=== PATIENT | female | born 1960 | race Caucasian/White ===

== ENCOUNTER 2020-10-12 14:12 | Emergency (ER) | payer OTHER, SELFPAY ==
[2020-10-12 14:13] VITALS: BP 148/97; PULSE 86; RESP 18; TEMP 36.3; O2SAT 97; BMI 36.3
--- NOTE | 2020-10-12 14:26 | EKG12_ITS ---
Test Reason : CP Blood Pressure : / mmHG Vent. Rate : 086 BPM Atrial Rate : 086 BPM P-R Int : 130 ms QRS Dur : 124 ms QT Int : 424 ms P-R-T Axes : 023 -48 -08 degrees QTc Int : 507 ms Normal sinus rhythm Right bundle branch block Left anterior fascicular block Bifascicular block Abnormal ECG Confirmed by ZIGGY WOMACK, LISA ([id number]), non linear editor HAYLEY SANTOS ([id number]) on 10/13/2020 1:06:27 PM Referred By: JUANY Confirmed By:LISA TRINH MD
--- NOTE | 2020-10-12 14:27 | ED.DCSUM_ITS ---
History of Present Illness Chief Complaint: Chest Pain Informant: Patient Onset: Today Timing: Intermittent, Lasts - 5 to 10 seconds Quality: Squeezing, pressure Location: Midsternal Current Severity: Mild Maximum Severity: Moderate Narrative: Patient presents secondary to chest pain. She states since 7 AM this morning, 7-1/2 hours ago, she has had intermittent squeezing pressure sensation in her mid chest. She states episodes will come on, only last 5 or 10 seconds, and then resolve. It is not necessarily related to activity. She does not feel short of breath. She has a history of PVCs but states she has never had anything that felt like this pressure. She does report having a stress test in the past but does admit it has been quite some time. - Past Medical History (1) Hypertension Status: Chronic (2) High cholesterol Status: Chronic (3) PVCs (premature ventricular contractions) Status: Chronic Past Medical History - Allergies and Home Meds Allergies/Adverse Reactions: Allergies Sulfa (Sulfonamide Antibiotics) Allergy (Verified 10/12/20 14:19) Carlos Primary Care Physician: Laci Morgan DO [Primary Care Provider] - As soon as possible Prior records reviewed: Yes Smoking Status: Former smoker Review of Systems General: Denies: Chills, Fever Eyes: Denies: Visual changes - bilaterally ENT: Denies: Bilateral ear pain Cardiovascular: Reports: Chest pain. Denies: Palpitations, Heart racing Respiratory: Denies: Dyspnea, Cough Gastrointestinal: Denies: Abdominal pain, Nausea, Vomiting, Diarrhea Musculoskeletal: Denies: Swelling, Extremity Pain Skin: Denies: Rash Hematologic: Denies: Easy bruising, Easy bleeding Allergy: Denies: Uticaria Physical Exam Vital Signs/Narrative: Vital Signs Temp Pulse Resp BP Pulse Ox 10/12/20 14:13 97.4 F L 86 18 148/97 H 97 Inital Vital Signs reviewed: Yes General: Well nourished, Well developed Head: Normocephalic ENT: Moist mucous membranes Neck: Supple Cardiovascular: Regular rate, Regular rhythm Respiratory: No distress, CTA bilaterally, Chest nontender Abdomen: Soft, Nontender Extremities: Nontender, No edema Skin: Normal color Neurological: Alert, Oriented x3 Psychological: Normal affect Diagnostic/Tx/Re-eval Chest X-Ray - ED: 1 View, Read by ED Physician, Chronic Changes, - - Poor inspiration Impressions Chest X-Ray 10/12/20 14:40 IMPRESSION: Increased markings at the lung bases more prominent on the left side suggestive of either bibasilar atelectasis and/or early infiltrates. Electronically Signed: Ramakrishna Bowden MD at 14:53 EDT , Service support , 10/12/20 14:40 Chest 1 View (Portable) [RAD] Stat Laboratory Results 10/12/20 10/12/20 10/12/20 14:15 14:15 14:15 WBC 6.8 RBC 4.48 Hgb 14.4 Hct 43.2 MCV 96.4 MCH 32.1 H MCHC 33.3 RDW Std Deviation 46.6 H RDW Coeff of [place] 13.1 Plt Count 247 MPV 10.6 Immature Gran % (Auto) 0.400 Neut % (Auto) 48.1 Lymph % (Auto) 41.6 H [place] % (Auto) 7.0 Eos % (Auto) 2.2 Baso % (Auto) 0.7 Absolute Neuts (auto) 3.3 Absolute Lymphs (auto) 2.81 Nucleated RBC % 0 D-Dimer Quant (PE/DVT) <= 0.27 Sodium 140 Potassium 3.8 Chloride 106 Carbon Dioxide 29.0 Anion Gap 5 BUN 16 Creatinine 0.74 Estim Creat Clear Calc 72.75 Est GFR (MDRD) Af Amer 103 Est GFR (MDRD) Non-Af 85 BUN/Creatinine Ratio 21.7 H Glucose 103 Calcium 9.5 Troponin I < 0.015 - EKG Initial EKG Interpretation: Sinus Rhythm - Sinus 86. Bifascicular block noted. No acute ST change. No prior studies available for comparison. - Medical Decision Making Patient was given aspirin on arrival. She is been on cardiac specialist throughout her ED stay with no evidence of arrhythmia. Patient states she has had no further episodes of chest pain while in the emergency room. Blood work is unremarkable including a negative troponin and D-dimer. Portable chest x-ray reveals chronic changes with poor inspiration. No definite focal i nfiltrate. Test results discussed with the patient. We discussed the possibility of admission for stress test versus close outpatient follow-up. Patient is reassured with our findings here and would prefer to follow-up. With her pain being atypical I think this is reasonable. Patient was encouraged to return to the ER for worsening symptoms or concerns. She voices understanding and agreement. ED Disposition - Plan for ED Patient: Disposition: Home or Assisted Living Diagnosis: Atypical chest pain Instructions: ED Chest Pain, Uncertain Cause Referrals: Laci Morgan, [Primary Care Provider] - As soon as possible
[2020-10-12 14:37] VITALS: O2SAT 99
[2020-10-12] MEDS: Aspirin 81 MG TAB.CHEW 324 MG PO (14:39)
[2020-10-12 14:40] LABS: Absolute Lymphocyte Count 2.81 X10^3/uL (0.83-4.51); Absolute Neutrophil Count 3.3 X10^3/uL (2.0-7.7); Basophil# 0.05 X10^3/uL; Basophil% 0.7 % (0-1); Eosinophil# 0.15 X10^3/uL; Eosinophils% 2.2 % (0-5); Hematocrit 43.2 % (37-47); Hemoglobin 14.4 g/dL (12.0-15.0); Lymphocyte # 2.81 X10^3/ul (4.0); Lymphocyte % 41.6 % (19-41); Mean Corp Hgb Conc 33.3 g/dL (32-36); Mean Corpuscular Hgb 32.1 pg (27.0-32.0); Mean Corpuscular Volume 96.4 fL (81-99); Mean Platelet Vol. 10.6 fl (6.2-12.0); Monocyte# 0.47 X10^3/uL; NRBC Flagged by Analyzer 0 % (0-5); Neutrophil # 3.25 X10^3/uL (2.7-7.7); Neutrophil % 48.1 % (47-70); Platelet Count 247 K/mm3 (150-450); RBC Distribution Width CV 13.1 % (11.6-14.6); RBC Distribution Width SD 46.6 fl (35.1-43.9); Red Blood Count 4.48 M/mm3 (4.2-5.4); White Blood Count 6.8 K/mm3 (4.4-11.0)
--- NOTE | 2020-10-12 14:40 | RAD_ITS ---
STUDY: X-RAY CHEST REASON FOR EXAM: Female, 59 years old. Chest pain TECHNIQUE: Single AP portable view of the chest. COMPARISON: None. FINDINGS: EKG electrodes are seen. Increased markings at the lung bases slightly more prominent at the left lung base suggests some bibasilar early infiltrates and/or atelectasis. There is no demonstrated pleural abnormality. There is borderline cardiomegaly. Normal mediastinum and nash. Normal visualized pulmonary arteries. There is atherosclerotic tortuosity of the aortic arch and descending thoracic aorta. Normal visualized thoracic spine. Normal visualized ribs, clavicles, and shoulders. There is no demonstrated abnormality of the visualized soft tissue structures of the upper abdomen. RAD/Chest 1 View (Portable) IMPRESSION: Increased markings at the lung bases more prominent on the left side suggestive of either bibasilar atelectasis and/or early infiltrates. Electronically Signed: Ramakrishna Bowden MD at 14:53 EDT , Service support ,
[2020-10-12 14:54] LABS: Anion Gap 5 (5-15); BUN 16 mg/dL (7-18); BUN/Creat Ratio 21.7 RATIO (10-20); Calcium,Total 9.5 mg/dL (8.5-10.1); Chloride 106 mmol/L (98-107); Creatinine, Serum 0.74 mg/dL (0.55-1.02); EST Glomerular Filtration Rate 85 mL/min (>60); Est Glom Filt Rate - Afr Amer 103 mL/min (>60); Estimated Creatinine Clearance 72.75 ml/min; Glucose 103 mg/dL (74-106); Potassium 3.8 mmol/L (3.5-5.1); Sodium Level 140 mmol/L (136-145)
[2020-10-12 15:18] VITALS: BP 132/74; PULSE 70; RESP 11; O2SAT 96
[2020-10-12 15:41] LABS: D-Dimer Quantitative (DVT/PE) <= 0.27 FEU/ug/m (0.27-0.49)
[2020-10-12 15:56] VITALS: BP 131/71; PULSE 71; RESP 13; O2SAT 96
== END 2020-10-12 16:01 | disposition home or self-care (01) ==
PROVIDERS: Emergency Provider Emergency Medicine; PCP Family Medicine
DX: R07.89 Other chest pain (principal); I45.2 Bifascicular block; I49.3 Ventricular premature depolarization; I10 Essential (primary) hypertension; E78.00 Pure hypercholesterolemia, unspecified; Z79.899 Other long term (current) drug therapy; Z87.891 Personal history of nicotine dependence
CPT/HCPCS: 71045; 80048; 84484; 85025; 85379; 93005; 99285; A4216